=== PATIENT | female | born 1960 | race Caucasian/White ===

== ENCOUNTER → 2017-11-11 | Outpatient (CLI) | payer OTHER ==
--- NOTE | ~2017-11-11 | EXE ---
[facility] [place] [address] STRESS ECHOCARDIOGRAM Name: ЕКАТЕРИНА FRANCE Room #: REG [facility]#: [id number] Admission: 11/11/17 Attend Phys: Matt Jimenez Discharge: Date of : 60 Date of Service: 11/12/17 1002 Report #: [id number] THIS REPORT FOR: //name// APPROVED REPORT Study performed: 11/11/2017 09:06:55 Exam: Stress Echocardiogram Indication: Dyspnea , Screening for CAD Patient Location: Out-Patient Stress Nurse: Radha Rainey RN Status: routine Ht: 5 ft 8 in BP: 111/79 mmHg Medical History Medical History: HTN, Hyperlipidemia Medications: Lisinopril Allergies: Penicillin, Sulfa Cardiac Risk Factors: HTN, FHX of CAD Pretest Chest Pain Characteristics: No chest pain Procedure The patient underwent an Exercise Stress Test using the Rogers Protocol. Blood pressure, heart rate, and EKG were monitored. An Echocardiogram was performed by semiconductor lab technician in four stages in quad fashion. At peak stress, four selected images were obtained and placed side by side with resting images for comparison. Stress Test Details Stress Test: Exercise stress testing was performed using a Rogers protocol. HR Resting HR: 79 bpm Max Heart Rate (APMHR): 164 bpm Max HR Achieved: 171 bpm Target HR (85% APMHR): 139 bpm % of APMHR: 104 Recovery HR: 92 bpm HR response to stress: Normal HR response to stress BP Resting BP: 111/79 mmHg Max BP: 130/83 mmHg Recovery BP: 110/74 mmHg [facility] [address] [place] [address] STRESS ECHOCARDIOGRAM Name: ЕКАТЕРИНА FRANCE Room #: REG Chin#: [id number] Admission: 11/11/17 Attend Phys: Matt Jimenez Discharge: Date of : 60 Date of Service: 11/12/17 1002 Report #: [id number] Resting ECG: Sinus Rhythm Stress ECG: Sinus Tachycardia Recovery ECG: Sinus Rhythm Clinical Reason for Termination: Maximal effort, Completed protocol Stress Symptoms: Fatigue Exercise duration: 7 min 58 sec Highest Stage Achieved: Stage 3: 3.4 mph at 14% grade. Exercise capacity: 10.10 METs Stress ECG Conclusion 1. Subjectively negative for ischemia 2. Elective cartographic a negative for ischemia 3. Average functional capacity Pre-Stress Echo The resting Echocardiogram showed normal left ventricular contractility with an estimated Ejection Fraction of about 55-60%. Normal wall motion in all segments on baseline images. Post-Stress Echo The stress Echocardiogram showed normal left ventricular contractility with an estimated Ejection Fraction of about 65-70%. Normal augmentation of wall motion in all segments on post stress images. Conclusion Clinical Response: Non-ischemic Exercise Capacity: Average Stress ECG Response: Non-ischemic Stress Echo Images: Non-ischemic 1. Low risk study Other Information Study Quality: Good <Conclusion> 1. Low risk study <ELECTRONICALLY SIGNED> By: Matt Shabazz MD 11/12/17 1002 1002 1002 Matt Shabazz MD /INF
== END ==
LOC: CV 08:41
DX: R06.09 Other forms of dyspnea (principal); I10 Essential (primary) hypertension; E78.5 Hyperlipidemia, unspecified; Z82.49 Family history of ischemic heart disease and other diseases of the circulatory system